=== PATIENT | male | born 1990 | race Caucasian/White ===

== ENCOUNTER 2016-08-23 20:19 | Inpatient (IN) | payer OTHER ==
[~2016-08-23] VITALS: Ht 180.3 cm; Wt 59.6 kg
[2016-08-23 21:21] VITALS: Ht 180.3 cm; Wt 59.6 kg
[2016-08-23 21:34] VITALS: BP 109/66; RESP 18
[2016-08-23] MEDS ORDERED: ACETAMINOPHEN 325 MG TAB PO PRN (22:00)
[2016-08-23] MEDS: DEXTROSE 5%-0.9% NACL 1,000 ML IV SCH (22:45)
[2016-08-24 06:05] LABS: ALBUMIN 3.1 g/dl (3.3-4.9)
[2016-08-24] MEDS: PANTOPRAZOLE 40 MG INJ IV SCH (06:05)
[2016-08-24 06:08] LABS: BILIRUBIN,INDIRECT 0.4 mg/dl (0-1.1); BILIRUBIN,TOTAL 0.4 mg/dl (0.2-1.3); CREATININE 0.55 mg/dl (0.61-1.24)
[2016-08-24 06:09] LABS: ALBUMIN/GLOBULIN RATIO 1.24; CALCIUM 8.3 mg/dl (8.4-10.2); TOTAL PROTEIN 5.6 g/dl (6.1-8.1)
[2016-08-24] MEDS ORDERED: POTASSIUM CHLORIDE (SR) 20 MEQ TAB PO STA (06:39)
[2016-08-24] MEDS: D5W-0.45 NACL + KCL 20 MEQ 1,000 ML IV SCH ×2 (06:52→21:20)
[2016-08-24 07:59] VITALS: BP 107/62; RESP 18
[2016-08-24] MEDS: BUDESONIDE (EC) 3 MG CAP PO SCH ×3 (09:51→20:12)
[2016-08-24] MEDS: ONDANSETRON 4 MG INJ IV PRN ×3 (09:56→23:21)
[2016-08-24] MEDS: morphine 2 MG INJ IV PRN ×2 (09:56→19:15)
[2016-08-24 10:30] LABS: HEMOGLOBIN 11.6 g/dl (14.0-18.0); RED BLOOD COUNT 3.92 10^6/ul (4.70-6.10); WHITE BLOOD COUNT 8.4 10^3/ul (4.8-10.8)
[2016-08-24 10:31] LABS: BASOPHILS % 0.5 % (0.0-2.0); EOSINOPHILS % 0.7 % (0.0-7.0); HEMATOCRIT 34.9 % (42.0-52.0); LYMPHOCYTES % 17.5 % (15.0-51.0); MEAN CORPUSCULAR HEMOGLOBIN 29.6 pg (29.0-33.0); MEAN CORPUSCULAR HGB CONC 33.2 g/dl (32.0-37.0); MONOCYTES % 12.9 % (0.0-11.0); PLATELET COUNT 358 10^3/UL (140-440); RED CELL DISTRIBUTION WIDTH 12.2 % (11.5-14.5)
[2016-08-24 10:32] LABS: EOSINOPHILS # 0.1 10^3/ul (0.0-0.5); LYMPHOCYTES # 1.5 10^3/ul (0.8-2.9); MONOCYTE # 1.1 10^3/ul (0.3-0.9); NEUTROPHIL # 5.7 10^3/ul (1.6-7.5)
[2016-08-24] MEDS ORDERED: VITAMIN A & D 5 GM OINT PACKET TOP ONE (12:01)
[2016-08-24] MEDS: DEXTROSE 5%-0.9% NACL 1,000 ML IV SCH (14:40)
--- NOTE | 2016-08-24 20:00 | CONS ---
DATE OF ADMISSION: 08/23/2016 DATE OF CONSULTATION: TYPE OF CONSULTATION: Gastroenterology. HISTORY OF PRESENT ILLNESS: The patient is a 26-year-old male who was recently diagnosed to have Cr ohn disease, went to the emergency room at [facility] with a complaint of rectal bleeding . He was evaluated at [facility] and was subsequently transferred to this facility for further ma nagement. The patient also had diarrhea. His stool C. difficile was positive at this facility, and now looking at his medication, he is already started on Flagyl. PAST SURGICAL HISTORY: Intussusception for which he had surgery. SOCIAL HISTORY: Does not smoke or drink. PHYSICAL EXAMINATION: VITALS: Stable. ABDOMEN: Benign. CARDIOVASCULAR: Grossly within normal limits. RESPIRATORY: Grossly within normal limits. CENTRAL NERVOUS SYSTEM: Grossly within normal limits. EXTREMITIES: No edema. IMPRESSION: 1. History of Crohn disease which needs to be still fully worked up. 2. Anemia. 3. Rectal bleeding which has stopped. 4. Clostridium difficile colitis. PLAN: Continue ____ Flagyl, continue ____. The patient needs IBD serology and capsule endoscopy as an outpatient to confirm the diagnosis. I have discussed with the patient at length. He understoo d and has agreed. Dictated By: BERONICA GRAHAM/RENETTA Conf#: [id number] DID#: [id number]
[2016-08-24] MEDS: metroNIDAZOLE 500 MG TAB PO SCH (20:12)
[2016-08-24 20:23] VITALS: BP 126/75; RESP 16
[2016-08-24] MEDS: morphine 4 MG/ML VIAL IV PRN (21:20)
--- NOTE | 2016-08-24 22:32 | QN ---
Documentation Comment [id number] MIRTA STOCK MD Aug 24, 2016 22:32
--- NOTE | 2016-08-25 00:05 | HP ---
DATE OF ADMISSION: 08/23/2016 HISTORY OF PRESENT ILLNESS: The patient is a young male who has a history of Crohn disease. The shauna vigil was transferred from [facility] because the patient is capitated to this hospital a nd patient was complaining of blood in the stool, but the patient has no active bleed. The patient' s laboratory data was reviewed. The patient denies any fevers, chills, or rigors. Denies any diarr hea. PAST MEDICAL HISTORY: Crohn disease and the patient has history of intussusception and surgery in t he past. ALLERGY HISTORY: NEGATIVE. FAMILY HISTORY: Negative. SOCIAL HISTORY: Negative. MEDICATIONS AT HOME: The patient is on budesonide. REVIEW OF SYSTEMS: HEENT: Unremarkable. RESPIRATORY: Unremarkable. CARDIOVASCULAR: Unremarkable. ABDOMEN: As mentioned above. EXTREMITIES: Unremarkable. CENTRAL NERVOUS SYSTEM: Unremarkable. PHYSICAL EXAMINATION: GENERAL: The patient is awake, alert. VITAL SIGNS: Stable. HEAD: Atraumatic, normocephalic. Pupils equal, reactive to light. NECK: Supple. No JVD. LUNGS: Clear. CARDIOVASCULAR: S1, S2 normal. ABDOMEN: Soft. Mild tenderness noted on deep palpation. EXTREMITIES: There is no cyanosis, clubbing, or edema. CENTRAL NERVOUS SYSTEM: The patient is awake, alert with no focal deficit. LABORATORY DATA: WBC 8.4, hematocrit 34.9, platelet count of 358. Potassium 3, which is being repl aced. IMPRESSION 1. Anemia. 2. Crohn disease. 3. Hypokalemia. PLAN: Give this patient IV fluid, potassium supplementation, pain medication. GI consultation. Or ders were done. Dictated By: MIRTA MARQUIS/NTS Conf#: [id number] DID#: [id number]
[2016-08-25] MEDS: PANTOPRAZOLE 40 MG INJ IV SCH (05:28)
[2016-08-25] MEDS: morphine 4 MG/ML VIAL IV PRN (05:28)
[2016-08-25 06:21] LABS: BASOPHILS % 0.3 % (0.0-2.0); EOSINOPHILS # 0.1 10^3/ul (0.0-0.5); HEMATOCRIT 34.3 % (42.0-52.0); HEMOGLOBIN 11.8 g/dl (14.0-18.0); LYMPHOCYTES # 1.3 10^3/ul (0.8-2.9); LYMPHOCYTES % 14.2 % (15.0-51.0); MEAN CORPUSCULAR HEMOGLOBIN 31.1 pg (29.0-33.0); MEAN CORPUSCULAR HGB CONC 34.4 g/dl (32.0-37.0); MEAN CORPUSCULAR VOLUME 90.6 fl (82.0-101.0); MEAN PLATELET VOLUME 7.5 fl (7.4-10.4); MONOCYTE # 1.3 10^3/ul (0.3-0.9); MONOCYTES % 13.3 % (0.0-11.0); NEUTROPHIL # 6.8 10^3/ul (1.6-7.5); NEUTROPHILS % 71.2 % (39.0-77.0); PLATELET COUNT 352 10^3/UL (140-440); RED BLOOD COUNT 3.78 10^6/ul (4.70-6.10); RED CELL DISTRIBUTION WIDTH 12.8 % (11.5-14.5); UNCORRECTED WBC 9.5 10^3/ul (4.8-10.8); WHITE BLOOD COUNT 9.5 10^3/ul (4.8-10.8)
[2016-08-25 06:22] LABS: CONDITION 1
[2016-08-25 06:30] LABS: POTASSIUM 3.5 mmol/L (3.5-5.1)
[2016-08-25 06:32] LABS: ALBUMIN/GLOBULIN RATIO 1.2; BILIRUBIN,INDIRECT 0.3 mg/dl (0-1.1); BILIRUBIN,TOTAL 0.3 mg/dl (0.2-1.3); CREATININE 0.57 mg/dl (0.61-1.24); TOTAL PROTEIN 5.5 g/dl (6.1-8.1)
[2016-08-25 06:33] LABS: CALCIUM 8.4 mg/dl (8.4-10.2)
[2016-08-25 07:49] VITALS: BP 106/57; RESP 16
[2016-08-25] MEDS: BUDESONIDE (EC) 3 MG CAP PO SCH ×3 (08:21→22:25)
[2016-08-25] MEDS: metroNIDAZOLE 500 MG TAB PO SCH ×3 (08:21→22:25)
[2016-08-25] MEDS ORDERED: INFLUENZA VIRUS VACCINE 0.5 ML (DISPENSING) IM* ONE (09:00)
--- NOTE | 2016-08-25 10:30 | CONS ---
Date/Time of Note Date/Time of Note DATE: 08/25/16 TIME: 10:28 Assessment/Plan Assessment/Plan Additional Assessment/Plan IMPRESSION: 1. History of Crohn disease which needs to be still fully worked up. 2. Anemia. 3. Rectal bleeding which has stopped. 4. Clostridium difficile colitis.better on Flagyl Plan complete course of Flagyl and f/u with Dr. Gómez Consultation Date/Type/Reason Admit Date/Time Aug 23, 2016 at 20:19 Initial Consult Date 24 HR Interval Summary Free Text/Dictation no diarrhea no bleeding Constitutional: improved Exam/Review of Systems Vital Signs Vitals Vital Signs Date Time Temp Pulse Resp B/P Pulse Ox O2 Delivery O2 Flow Rate FiO2 08/25/16 07:49 97.9 63 16 106/57 99 Intake and Output 08/24/16 08/24/16 08/25/16 15:00 23:00 07:00 Intake Total 1480 ml 1530 ml Balance 1480 ml 1530 ml Exam Constitutional: alert, oriented, well developed Psych: nl mood/affect, no complaints Head: atraumatic, normocephalic Eyes: EOMI, PERRL, nl conjunctiva, nl lids, nl sclera ENMT: nl external ears & nose, nl lips & teeth, nl nasal mucosa & septum Neck: non-tender, supple Respiratory: clear to auscultation, normal air movement Cardiovascular: nl pulses, regular rate and rhythm Gastrointestinal: nl liver, spleen, non-tender, soft Musculoskeletal: nl extremities to inspection, nl gait and stance Extremities: normal pulses Neurological: 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, nl mental status, nl speech, nl strength Skin: nl turgor, No rash or lesions Lymph: nl lymph nodes Results Result Diagram: 08/25/1615 08/25/1615 Results 24 hrs Laboratory Tests Test 08/25/16 05:15 Alanine Aminotransferase (ALT/SGPT) 22 Albumin 3.0 L Albumin/Globulin Ratio 1.20 Alkaline Phosphatase 75 Anion Gap 16 Aspartate Amino Transf (AST/SGOT) 15 Basophils # 0.0 Basophils % 0.3 Blood Urea Nitrogen 6 L Calcium Level 8.4 Carbon Dioxide Level 29 Chloride Level 101 Creatinine 0.57 L Direct Bilirubin 0.00 Eosinophils # 0.1 Eosinophils % 1.0 Globulin 2.50 Glucose Level 96 Hematocrit 34.3 L Hemoglobin 11.8 L Indirect Bilirubin 0.3 Lymphocytes # 1.3 Lymphocytes % 14.2 L Mean Corpuscular Hemoglobin 31.1 Mean Corpuscular Hemoglobin Concent 34.4 Mean Corpuscular Volume 90.6 Mean Platelet Volume 7.5 Monocytes # 1.3 H Monocytes % 13.3 H Neutrophils # 6.8 Neutrophils % 71.2 Nucleated Red Blood Cells # 0.0 Nucleated Red Blood Cells % 0.0 Platelet Count 352 Potassium Level 3.5 Red Blood Count 3.78 L Red Cell Distribution Width 12.8 Sodium Level 142 Total Bilirubin 0.3 Total Protein 5.5 L White Blood Count 9.5 Medications Medications Current Medications Pantoprazole (Protonix Iv) 40 mg DAILY@06 IV Last administered on 08/25/16 05: 28; Admin Dose 40 MG; Start 08/24/16 at 06:00 Acetaminophen (Tylenol Tab) 650 mg Q6H PRN PO PAIN AND OR ELEVATED TEMP; Start 08/23/16 at 22:00 Ondansetron HCl (Zofran Inj) 4 mg Q4 PRN IV NAUSEA AND/OR VOMITING Last administered on 08/24/16 23:21; Admin Dose 4 MG; Start 08/23/16 at 22:00 Budesonide 3 mg 3 mg TID PO Last administered on 08/25/16 08:21; Admin Dose 3 MG; Start 08/24/16 at 09:00 Potassium Chloride/Dextrose/ Sod Cl (D5-1/2ns + KCl 20 Meq) 1,000 ml @ 70 mls/ hr [id number] IV Last administered on 08/24/16 21:20; Admin Dose 70 MLS/HR; Start 08/24/16 at 07:00 Metronidazole (Flagyl) 500 mg TID PO Last administered on 08/25/16 08:21; Admin Dose 500 MG; Start 08/24/16 at 21:00 Morphine Sulfate (morphine) 3 mg Q3H PRN IV PAIN Last administered on 05:28; Admin Dose 3 MG; Start 08/24/16 at 21:30 BERONICA BENNETT MD Aug 25, 2016 10:30
[2016-08-25] MEDS: D5W-0.45 NACL + KCL 20 MEQ 1,000 ML IV SCH (11:05)
--- NOTE | 2016-08-25 20:39 | PN ---
Date/Time of Note Date/Time of Note DATE: 08/25/16 TIME: 20:38 Assessment/Plan VTE Prophylaxis VTE Prophylaxis Intervention: other Lines/Catheters IV Catheter Type (from Nrsg): Peripheral IV Assessment/Plan Chief Complaint/Hosp Course IMPRESSION 1. Anemia. 2. Crohn disease. 3. Hypokalemia. 4 C DIFFI+ PLAN FLAGYL Problems: Subjective 24 Hr Interval Summary Gastrointestinal: No diarrhea Exam/Review of Systems Vital Signs Vitals Vital Signs Date Time Temp Pulse Resp B/P Pulse Ox O2 Delivery O2 Flow Rate FiO2 08/25/16 07:49 97.9 63 16 106/57 99 Intake and Output 08/24/16 08/24/16 08/25/16 15:00 23:00 07:00 Intake Total 1480 ml 1530 ml Balance 1480 ml 1530 ml Exam Neck: supple Respiratory: clear to auscultation Cardiovascular: regular rate and rhythm Gastrointestinal: soft Musculoskeletal: nl extremities to inspection Extremities: normal pulses Results Result Diagram: 08/25/16 0515 08/25/16 0515 Results 24 hrs Laboratory Tests Test 08/25/16 05:15 Alanine Aminotransferase (ALT/SGPT) 22 Albumin 3.0 L Albumin/Globulin Ratio 1.20 Alkaline Phosphatase 75 Anion Gap 16 Aspartate Amino Transf (AST/SGOT) 15 Basophils # 0.0 Basophils % 0.3 Blood Urea Nitrogen 6 L Calcium Level 8.4 Carbon Dioxide Level 29 Chloride Level 101 Creatinine 0.57 L Direct Bilirubin 0.00 Eosinophils # 0.1 Eosinophils % 1.0 Globulin 2.50 Glucose Level 96 Hematocrit 34.3 L Hemoglobin 11.8 L Indirect Bilirubin 0.3 Lymphocytes # 1.3 Lymphocytes % 14.2 L Mean Corpuscular Hemoglobin 31.1 Mean Corpuscular Hemoglobin Concent 34.4 Mean Corpuscular Volume 90.6 Mean Platelet Volume 7.5 Monocytes # 1.3 H Monocytes % 13.3 H Neutrophils # 6.8 Neutrophils % 71.2 Nucleated Red Blood Cells # 0.0 Nucleated Red Blood Cells % 0.0 Platelet Count 352 Potassium Level 3.5 Red Blood Count 3.78 L Red Cell Distribution Width 12.8 Sodium Level 142 Total Bilirubin 0.3 Total Protein 5.5 L White Blood Count 9.5 Medications Medications Current Medications Acetaminophen (Tylenol Tab) 650 mg Q6H PRN PO PAIN AND OR ELEVATED TEMP; Start 08/23/16 at 22:00 Ondansetron HCl (Zofran Inj) 4 mg Q4 PRN IV NAUSEA AND/OR VOMITING Last administered on 08/24/16 23:21; Admin Dose 4 MG; Start 08/23/16 at 22:00 Budesonide 3 mg 3 mg TID PO Last administered on 08/25/16 12:36; Admin Dose 3 MG; Start 08/24/16 at 09:00 Potassium Chloride/Dextrose/ Sod Cl (D5-1/2ns + KCl 20 Meq) 1,000 ml @ 70 mls/ hr [id number] IV Last administered on 08/25/16 11:05; Admin Dose 70 MLS/HR; Start 08/24/16 at 07:00 Metronidazole (Flagyl) 500 mg TID PO Last administered on 08/25/16 12:36; Admin Dose 500 MG; Start 08/24/16 at 21:00 Morphine Sulfate (morphine) 3 mg Q3H PRN IV PAIN Last administered on 05:28; Admin Dose 3 MG; Start 08/24/16 at 21:30 Pantoprazole (Protonix Tab) 40 mg DAILY@06 PO ; Start 08/26/16 at 06:00 MIRTA STOCK MD Aug 25, 2016 20:39
[2016-08-25 20:51] VITALS: BP 100/58; RESP 14
[2016-08-26] MEDS: D5W-0.45 NACL + KCL 20 MEQ 1,000 ML IV SCH (02:21)
[2016-08-26] MEDS ORDERED: PANTOPRAZOLE (EC) 40 MG TAB PO SCH (06:00)
[2016-08-26 07:24] VITALS: BP 106/62; RESP 18
[2016-08-26] MEDS: metroNIDAZOLE 500 MG TAB PO SCH ×2 (08:52→13:51)
[2016-08-26] MEDS: BUDESONIDE (EC) 3 MG CAP PO SCH ×2 (08:52→13:51)
--- NOTE | 2016-08-26 12:11 | PDOCDIS ---
Discharge Instructions CONDITION Patient Condition: Stable HOME CARE INSTRUCTIONS: Special Diet: clear liq ACTIVITY: Activity Restrictions: Slowly Increase Activity FOLLOW UP/APPOINTMENTS Appointments f/u own pcp [address] marti 1 wk MIRTA STOCK MD Aug 26, 2016 12:11
[2016-08-26] MEDS ORDERED: ONDA4TAB8 PO (12:13)
[2016-08-26] MEDS ORDERED: METR500T PO (12:13)
[2016-08-26] MEDS ORDERED: PANT20TA2 PO (12:13)
== END 2016-08-26 16:35 | disposition home or self-care (01) | DRG 372 ==
LOC: MS2 20:19
PROVIDERS: ADMIT Internal Medicine Nephrology; ATTEND Internal Medicine Nephrology
PROC: 3E0234Z Introduction of Serum, Toxoid and Vaccine into Muscle, Percutaneous Approach (ICD-10-PCS; principal; 2016-08-25)
DX: A04.7 Enterocolitis due to Clostridium difficile (principal); K50.90 Crohn's disease, unspecified, without complications; D64.9 Anemia, unspecified; E87.6 Hypokalemia; Z23 Encounter for immunization
CPT/HCPCS: 80053; 85025; 87075; 90686; C9113; J2270; J2405; J3480; J7042

== ENCOUNTER 2016-09-14 12:16 | Day surgery (SDC) | payer OTHER ==
[~2016-09-14] VITALS: Ht 180.3 cm; Wt 59.2 kg
[~2016-09-14 12:16] MED LIST: METR500T PO; ONDA4TAB8 PO; PANT20TA2 PO
[2016-09-14] MEDS ORDERED: [UNRECOGNIZED DRUG - OTHER] (13:31)
[2016-09-14 13:40] VITALS: Ht 180.3 cm; Wt 59.2 kg
[2016-09-14 13:41] VITALS: BP 103/58; PULSE 72
[2016-09-14] MEDS ORDERED: FENTAnyl 50 MCG/ML VIAL ONE (14:36)
[2016-09-14] MEDS ORDERED: MIDAZOLAM 1 MG/ML 2 ML INJ ONE ×2 (14:36→14:37)
[2016-09-14] MEDS ORDERED: MEPERIDINE 50 MG INJ ONE (14:37)
[2016-09-14 15:02] VITALS: BP 101/63; PULSE 73; RESP 20
--- NOTE | 2016-09-14 17:11 | GILP ---
DATE OF PROCEDURE: PREOPERATIVE DIAGNOSIS: History of ulcerative colitis, Crohn's, diarrhea recently. He was treated for C. diff, and now for colonoscopy to further evaluate for ulcerative colitis or Crohn's colitis. PROCEDURE DONE: Colonoscopy and ileoscopy and biopsy of the terminal ileum, and colon biopsy. POSTOPERATIVE DIAGNOSES: Normal terminal ileum, normal colon. No evidence of either ulcerative col itis or Crohn's disease or pseudomembranous colitis. DESCRIPTION OF PROCEDURE: Patient was put in left lateral decubitus after obtaining informed consen t. He was sedated with 4 mg of IV Versed and 75 mcg of fentanyl and 25 mg of Demerol. Rectal exam done. Advanced Olympus video colonoscope all the way to terminal ileum, nearly 12 inche s inside the terminal ileum. It was essentially normal-looking terminal ileum. Biopsies and photog andreia also done. Biopsies randomly done just to rule out any disease. In the colon, the entire col on was normal from rectum to cecum. Random biopsies were done to rule out any microcolitis. No demetra dence of pseudomembranous colitis. Dear Dr. Davis: At present, I do not have any endoscopic evidence of either Crohn's in the termi nal ileum or ulcerative colitis or pseudomembranous colitis. Await for biopsy report. I may ask him to stop all the medication and reevaluate this patient. Continue monitoring this patient in your o ffice. Dictated By: THOR MILTON/RENETTA Conf#: [id number] DID#: [id number] CC: LEEANNA DAVIS M.D.;*End*
== END 2016-09-14 15:03 | disposition home or self-care (01) ==
LOC: GIL 12:16
PROVIDERS: ATTEND Internal Medicine
DX: K62.89 Other specified diseases of anus and rectum (principal)
CPT/HCPCS: 45380; 88305; J2175; J2250; J3010; Z7610